=== PATIENT | male | born 1965 | race Caucasian/White ===

== ENCOUNTER 2023-06-22 11:28 | Outpatient (OUT) | payer SELFPAY | END 2023-06-22 11:29 | disposition home or self-care (01) | LOC: PST 11:29 | PROVIDERS: Family Provider Surgery; Visit Provider Surgery | DX: Z01.818 Encounter for other preprocedural examination (principal); Z86.010 Personal history of colon polyps ==

== ENCOUNTER 2023-06-29 08:44 | Day surgery (SDC) | payer OTHER, SELFPAY ==
--- NOTE | 2023-06-29 | OP_ITS ---
OPERATION DATE: 06/29/2023 PREOPERATIVE DIAGNOSIS: Personal history of colon polyps. POSTOPERATIVE DIAGNOSIS: 1.2 cm ascending colon polyp and 5 mm sigmoid polyp as well as sigmoid diverticulosis. PROCEDURE: Colonoscopy to cecum with hot snare polypectomy x2. SURGEON: Amos Duarte M.D. ANESTHESIA: Monitored anesthesia care. ESTIMATED BLOOD LOSS: Less than 1 mL. INDICATIONS AND CONSENT: Patient is a 58-year-old male with a personal history of colon polyps. Indications, risks, benefits, alternatives of proceeding with colonoscopy were explained extensively to the patient, including the risks of bleeding, colon perforation or anesthetic complications. All of his questions were answered. Informed consent was obtained. PROCEDURE: Patient brought to the operating room, placed in the left lateral decubitus position. Monitored anesthesia care was provided. Rectal exam was performed which revealed no masses or blood. The scope was inserted into the anal canal. Under direct visualization was advanced. With the aid of abdominal compression, it was advanced to the cecum where cecal markings were clearly identified. Upon withdrawal of the scope, mucosal surfaces were carefully examined. There were no mass lesions or inflammatory changes. In the ascending colon, there was a noted to be a 1.2 cm sessile polyp that was removed with hot snare with good hemostasis. In the sigmoid colon, there was noted to be moderate sigmoid diverticulosis as well as a 5 mm pedunculated polyp that was removed with hot snare with good hemostasis. The scope was retroflexed in the anal canal. There was no significant hemorrhoidal disease. Scope was then withdrawn. Patient tolerated procedure well, was sent to recovery room in good condition.follow up colonoscopy likely in 3 years, but will depend on pathology result CC: Patient?s family physician [place]
[2023-06-29 09:04] VITALS: BP 122/77; PULSE 60; RESP 16; TEMP 36.2; O2SAT 100
[2023-06-29] MEDS: LACTATED RINGER'S SOLUTION 1,000 ML 50 ML IV (09:20)
[2023-06-29 11:05] VITALS: BP 92/49; PULSE 57; RESP 12; O2SAT 99
[2023-06-29 11:20] VITALS: BP 102/60; PULSE 55; RESP 16; O2SAT 100
== END 2023-06-29 11:40 | disposition home or self-care (01) ==
PROVIDERS: Family Provider Surgery; PCP Internal Medicine; Visit Provider Surgery
PROC: (CPT 811; principal; 2023-06-29 09:50)
DX: Z86.010 Personal history of colon polyps (principal); K57.30 Diverticulosis of large intestine without perforation or abscess without bleeding; D12.2 Benign neoplasm of ascending colon; K63.5 Polyp of colon; I50.22 Chronic systolic (congestive) heart failure; G47.33 Obstructive sleep apnea (adult) (pediatric); I48.92 Unspecified atrial flutter; E78.00 Pure hypercholesterolemia, unspecified; I42.8 Other cardiomyopathies; E66.3 Overweight; Z68.29 Body mass index [BMI] 29.0-29.9, adult; Z79.01 Long term (current) use of anticoagulants
CPT/HCPCS: 45385; 88305; J2704